=== PATIENT | female | born 1985 | race Caucasian/White ===

== ENCOUNTER 2017-04-09 08:38 | Emergency (ER) | payer BC | END 2017-04-09 08:53 | disposition left against medical advice (07) | LOC: MW.ED 08:38 | DX: Z53.21 Procedure and treatment not carried out due to patient leaving prior to being seen by health care provider (principal) ==

== ENCOUNTER 2017-10-11 16:17 | Inpatient (IN) | payer BC ==
[2017-10-11] MEDS ORDERED: Water For Irrigation,Sterile 1,000 ML Container IRR PRN (16:37)
[2017-10-11] MEDS ORDERED: Nalbuphine 10 MG/ML 10 ML MDV IVPUSH PRN (16:37)
[2017-10-11] MEDS ORDERED: Methylergonovine 0.2 MG/1 ML Amp IM PRN (16:37)
[2017-10-11] MEDS ORDERED: Misoprostol 200 MCG Tab PO PRN (16:37)
[2017-10-11] MEDS ORDERED: Terbutaline 1 MG/ML SDV SUBCUT PRN (16:37)
[2017-10-11] MEDS ORDERED: Tranexamic Acid 1,000 MG in Sodium Chloride 0.9% 100 ML IV PRN (16:37)
[2017-10-11] MEDS ORDERED: Sodium Chloride 0.9% 10 ML Syringe FLUSH PRN (16:37)
[2017-10-11] MEDS ORDERED: Carboprost Tromethamine 250 MCG/1 ML Amp IM PRN (16:37)
[2017-10-11] MEDS ORDERED: Sodium Chloride 0.9% 2.5 ML Syringe FLUSH PRN (16:37)
[2017-10-11] MEDS ORDERED: Lidocaine 1% 50 ML MDV INJECT PRN (16:37)
[2017-10-11] MEDS ORDERED: Oxytocin/0.9 % Sodium Chloride 30 UNIT/500 ML BAG IV SCH ×2 (16:45)
--- NOTE | 2017-10-11 17:11 | PCM.LDHP ---
L&D History of Present Illness - General Date of Service: 10/11/17 Admit Problem/Dx: Patient Status Order with Admit Dx/Problem 10/11/17 16:37 Patient Status [ADT] Routine Admission Diagnosis/Problem Admission Diagnosis/Problem - planned 10/11/17 17:08 32yo EDC 10/16/2017 39 1/7wks O-, RI, GBS neg. IOL term Source of Information: Patient History Limitations: Reports: No Limitations - History of Present Illness Improves with: Reports: None Worsens with: Reports: None Associated Symptoms: Reports: N - Related Data Allergies/Adverse Reactions: Allergies Allergy/AdvReac Type Severity Reaction Status Date / Time amoxicillin [Amoxicillin] Allergy Unknown Difficulty Verified 07/16/16 15:57 Breathing Home Medications: Home Meds Multivitamin [Multivitamins] 1 each PO DAILY 07/16/16 [History] Past Medical History - Past Health History Medical/Surgical History: Denies Medical/Surgical History HEENT History: Reports: None Cardiovascular History: Reports: None Gastrointestinal History: Reports: Other (See Below) Other Gastrointestinal History: heartburn Psychiatric History: Reports: None Endocrine/Metabolic History: Reports: None - Past Surgical History HEENT Surgical History: Reports: None Female Surgical History: Reports: D&C Musculoskeletal Surgical History: Reports: None Social & Family History - Family History Family Medical History: Noncontributory - Caffeine Use Caffeine Use: Reports: Coffee Other Caffeine Use: 1 cup daily H&P Review of Systems - Review of Systems: Review Of Systems: See Below General: Reports: No Symptoms HEENT: Reports: No Symptoms Pulmonary: Reports: No Symptoms Cardiovascular: Reports: No Symptoms Gastrointestinal: Reports: No Symptoms Genitourinary: Reports: No Symptoms Musculoskeletal: Reports: No Symptoms Skin: Reports: No Symptoms Psychiatric: Reports: No Symptoms Neurological: Reports: No Symptoms Hematologic/Lymphatic: Reports: No Symptoms Immunologic: Reports: No Symptoms L&D Exam - Exam Exam: See Below - OB Specific Movement: Active Heart Tones: Present Heart Tones per Min: 125 Heart Rate (FHR) Variability: Moderate (6-25 bmp) Presentation: Vertex - Cain Score Cain Score Cervix Position: Midposition Cain Score Consistency: Soft Cain Score Effacement: 51-70% Cain Score Dilation: 1-2 cm Cain Score Infant's Station: -2 Cain Score Total: 7 - Exam General: Alert, Oriented HEENT: Hearing Intact Lungs: Clear to Auscultation, Normal Respiratory Effort Cardiovascular: Regular Rate, Regular Rhythm, Normal S1, Normal S2 GI/Abdominal Exam: Normal Bowel Sounds, Soft, Non-Tender Rectal Exam: Deferred Genitourinary: Normal external exam, Normal bimanual exam, Cervical dilitation Back Exam: Normal Inspection, Full Range of Motion Extremities: Normal Inspection, Normal Range of Motion, Non-Tender, No Pedal Edema, Normal Capillary Refill Skin: Warm, Dry, Intact Neurological: Cranial Nerves Intact, Reflexes Equal Bilateral, Normal Speech, Normal Tone Psychiatric: Alert, Normal Affect, Normal Mood - Problem List (1) Supervision of normal IUP (intrauterine ) in multigravida SNOMED Code(s): 852269607, [id number], [id number] ICD Code: Z34.80 - ENCOUNTER FOR SUPRVSN OF NORMAL , UNSP TRIMESTER Status: Acute Priority: High Current Visit: Yes Qualifiers: Trimester: third trimester Qualified Code(s): Z34.83 - Encounter for supervision of other normal , third trimester Problem List Initiated/Reviewed/Updated: Yes Orders Last 24hrs: Active Orders 24 hr Category Date Time Status Patient Status [ADT] Routine ADT 10/11/17 16:37 Active Bedrest Bathroom Privileges [RC] ASDIRECTED Care 10/11/17 16:37 Active Communication Order [RC] ASDIRECTED Care 10/11/17 16:37 Active Communication Order [RC] ASDIRECTED Care 10/11/17 16:37 Active Communication Order [RC] ASDIRECTED Care 10/11/17 16:37 Active Heart Tones [RC] CONTINUOUS Care 10/11/17 16:37 Active Non Stress Test [RC] PER UNIT ROUTINE Care 10/11/17 16:37 Active May Shower [RC] ASDIRECTED Care 10/11/17 16:37 Active Notify Provider [RC] PRN Care 10/11/17 16:37 Active Notify Provider [RC] PRN Care 10/11/17 16:37 Active Notify Provider [RC] PRN Care 10/11/17 16:37 Active Notify Provider [RC] STAT Care 10/11/17 16:37 Active Oxygen Therapy [RC] ASDIRECTED Care 10/11/17 16:37 Active Up ad Chloé [RC] ASDIRECTED Care 10/11/17 16:37 Active Vaginal Exam [RC] PRN Care 10/11/17 16:37 Active Vaginal Exam [RC] PRN Care 10/11/17 16:37 Active Vital Signs [RC] PER UNIT ROUTINE Care 10/11/17 16:37 Active Vital Signs [RC] PER UNIT ROUTINE Care 10/11/17 16:37 Active CBC W/O DIFF,HEMOGRAM [HEME] Routine Lab 10/11/17 16:37 Ordered TYPE AND SCREEN [BBK] Routine Lab 10/11/17 16:37 Ordered Carboprost Tromethamine [Hemabate DS] Med 10/11/17 16:37 Active 250 mcg IM ASDIRECTED PRN Lactated Ringers [Ringers, Lactated] 1,000 ml Med 10/11/17 16:45 Active IV ASDIRECTED Lidocaine 1% [Xylocaine 1%] Med 10/11/17 16:37 Active 50 ml INJECT .ONCE PRN Methylergonovine [Methergine] Med 10/11/17 16:37 Active 0.2 mg IM ASDIRECTED PRN Misoprostol [Cytotec] Med 10/11/17 16:37 Active 200 mcg PO .ONCE PRN Nalbuphine [Nubain] Med 10/11/17 16:37 Active 10 mg IVPUSH Q1H PRN Oxytocin/0.9 % Sodium Chloride [Oxytocin 30 Unit/500 ML Med 10/11/17 16:45 Active -NS] 30 unit in 500 ml IV TITRATE Oxytocin/0.9 % Sodium Chloride [Oxytocin 30 Unit/500 ML Med 10/11/17 16:45 Active -NS] 30 unit in 500 ml IV TITRATE Sodium Chloride 0.9% [Saline Flush] Med 10/11/17 16:37 Active 10 ml FLUSH ASDIRECTED PRN Sodium Chloride 0.9% [Saline Flush] Med 10/11/17 16:37 Active 2.5 ml FLUSH ASDIRECTED PRN Terbutaline [Brethine] Med 10/11/17 16:37 Active 0.25 mg SUBCUT ASDIRECTED PRN Tranexamic Acid [Cyklokapron] 1,000 mg Med 10/11/17 16:37 Active Sodium Chloride 0.9% [Normal Saline] 100 ml IV ONETIME Water For Irrigation,Sterile [Sterile Water for Med 10/11/17 16:37 Active Irrigation] 1,000 ml IRR ASDIRECTED PRN Scalp Electrode [WOMSER] Per Unit Routine Oth 10/11/17 16:37 Ordered Medication Administration Instruction [OM.PC] Q3H Oth 10/11/17 16:45 Ordered Peripheral IV Insertion Adult [OM.PC] Routine Oth 10/11/17 16:37 Ordered Resuscitation Status Routine Resus Stat 10/11/17 16:37 Ordered Medication Orders Carboprost Tromethamine (Hemabate Ds) 250 mcg IM ASDIRECTED PRN PRN Reason: Post Hemorrhage Lactated Ringer's (Ringers, Lactated) 1,000 mls @ 150 mls/hr IV ASDIRECTED CARLO Oxytocin/Sodium Chloride (Oxytocin 30 Unit/500 Ml-Ns) 30 unit in 500 mls @ 250 mls/hr IV TITRATE CARLO Oxytocin/Sodium Chloride (Oxytocin 30 Unit/500 Ml-Ns) 30 unit in 500 mls @ 2 mls/hr IV TITRATE CARLO; Protocol Tranexamic Acid 1,000 mg/ (Sodium Chloride) 110 mls @ 660 mls/hr IV ONETIME PRN PRN Reason: Bleeding Lidocaine HCl (Xylocaine 1%) 50 ml INJECT .ONCE PRN PRN Reason: Laceration repair Methylergonovine Maleate (Methergine) 0.2 mg IM ASDIRECTED PRN PRN Reason: Post Hemorrhage Misoprostol (Cytotec) 200 mcg PO .ONCE PRN PRN Reason: Post Hemorrhage Nalbuphine HCl (Nubain) 10 mg IVPUSH Q1H PRN PRN Reason: Pain (severe 7-10) Sodium Chloride (Saline Flush) 10 ml FLUSH ASDIRECTED PRN PRN Reason: Keep Vein Open Sodium Chloride (Saline Flush) 2.5 ml FLUSH ASDIRECTED PRN PRN Reason: Keep Vein Open Sterile Water (Sterile Water For Irrigation) 1,000 ml IRR ASDIRECTED PRN PRN Reason: delivery Terbutaline Sulfate (Brethine) 0.25 mg SUBCUT ASDIRECTED PRN PRN Reason: Tacysystole Assessment/Plan Comment:: IOL A: 32yo EDC 10/16/2017 39 1/7wks O-, RI, GBS neg. IOL term P: Admit, AROM for IOL. GBS neg, Anticipate . Dr Hdez updated.
[2017-10-11] MEDS: Lactated Ringers 1,000 ML IV SCH ×3 (22:15→23:43)
[2017-10-11] MEDS ORDERED: fentaNYL 100 MCG/2 ML SDV ONE (22:44)
[2017-10-11] MEDS ORDERED: Phenylephrine 1% 10 MG/ML SDV ONE (23:13)
[2017-10-11] MEDS ORDERED: ePHEDrine 50 MG/ML SDV ONE (23:13)
--- NOTE | 2017-10-12 00:04 | PCM.PREANE ---
Preanesthetic Assessment - Anesthesia/Transfusion/Family Hx Anesthesia History: Prior Anesthesia Without Reaction Family History of Anesthesia Reaction: No Transfusion History: No Prior Transfusion(s) - Review of Systems General: No Symptoms Pulmonary: No Symptoms Cardiovascular: No Symptoms Gastrointestinal: No Symptoms Neurological: No Symptoms Other: Reports: None (Denies any personal or family hx of bleeding or clotting problems) - Physical Assessment Height: 16.15 m Weight: 91.994 kg ASA Class: 2 Mental Status: Alert & Oriented x3 Airway Class: Mallampati = 2 Dentition: Reports: Normal Dentition ROM/Head Extension: Full - Lab Values: Laboratory Last Values WBC 10.83 K/uL (4.0-11.0) 10/11/17 16:55 RBC 4.07 M/uL (4.30-5.90) L 10/11/17 16:55 Hgb 12.5 g/dL (12.0-16.0) 10/11/17 16:55 Hct 35.5 % (36.0-46.0) L 10/11/17 16:55 MCV 87.2 fL (80.0-98.0) 10/11/17 16:55 MCH 30.7 pg (27.0-32.0) 10/11/17 16:55 MCHC 35.2 g/dL (31.0-37.0) 10/11/17 16:55 RDW Std Deviation 43.0 fl (28.0-62.0) 10/11/17 16:55 RDW Coeff of Tommy 14 % (11.0-15.0) 10/11/17 16:55 Plt Count 224 K/uL (150-400) 10/11/17 16:55 MPV 9.70 fL (7.40-12.00) 10/11/17 16:55 Nucleated RBC % 0.0 /100WBC 10/11/17 16:55 Nucleated RBCs # 0 K/uL 10/11/17 16:55 Blood Type O NEGATIVE 10/11/17 16:55 Antibody Screen NEGATIVE 10/11/17 16:55 - Allergies Allergies/Adverse Reactions: Allergies Allergy/AdvReac Type Severity Reaction Status Date / Time amoxicillin [Amoxicillin] Allergy Unknown Difficulty Verified 10/11/17 20:32 Breathing - Acknowledgements Anesthesia Type Planned: Epidural Pt an Appropriate Candidate for the Planned Anesthesia: Yes Alternatives and Risks of Anesthesia Discussed w Pt/Guardian: Yes Pt/Guardian Understands and Agrees with Anesthesia Plan: Yes PreAnesthesia Questionnaire - Past Health History Medical/Surgical History: Denies Medical/Surgical History HEENT History: Reports: None Cardiovascular History: Reports: None Respiratory History: Reports: None Gastrointestinal History: Reports: Other (See Below) Other Gastrointestinal History: heartburn Genitourinary History: Reports: None SPECIALTY MOLDER History: Reports: Musculoskeletal History: Reports: None Neurological History: Reports: None Psychiatric History: Reports: None Endocrine/Metabolic History: Reports: None Hematologic History: Reports: None Immunologic History: Reports: None Oncologic (Cancer) History: Reports: None Dermatologic History: Reports: None - Infectious Disease History Infectious Disease History: Reports: None - Past Surgical History Head Surgeries/Procedures: Reports: None HEENT Surgical History: Reports: None Cardiovascular Surgical History: Reports: None Respiratory Surgical History: Reports: None GI Surgical History: Reports: None Female Surgical History: Reports: D&C Endocrine Surgical History: Reports: None Neurological Surgical History: Reports: None Musculoskeletal Surgical History: Reports: None Oncologic Surgical History: Reports: None Dermatological Surgical History: Reports: None - SUBSTANCE USE Smoking Status *Q: Never Smoker Second Hand Smoke Exposure: No Recreational Drug Use History: No - HOME MEDS Home Medications: Home Meds Multivitamin [Multivitamins] 1 each PO DAILY 07/16/16 [History] Ranitidine [Zantac] 75 mg PO DAILY 10/11/17 [History] Sertraline [Zoloft] 50 mg PO BEDTIME 10/11/17 [History] - CURRENT (IN HOUSE) MEDS Current Meds: Current Medications Carboprost Tromethamine (Hemabate Ds) 250 mcg IM ASDIRECTED PRN PRN Reason: Post Hemorrhage Lactated Ringer's (Ringers, Lactated) 1,000 mls @ 150 mls/hr IV ASDIRECTED CARLO Last Admin: 10/11/17 23:43 Dose: 150 mls/hr Oxytocin/Sodium Chloride (Oxytocin 30 Unit/500 Ml-Ns) 30 unit in 500 mls @ 250 mls/hr IV TITRATE CARLO Oxytocin/Sodium Chloride (Oxytocin 30 Unit/500 Ml-Ns) 30 unit in 500 mls @ 2 mls/hr IV TITRATE CARLO; Protocol Last Admin: 10/11/17 23:27 Dose: 2 munits/min, 2 mls/hr Tranexamic Acid 1,000 mg/ (Sodium Chloride) 110 mls @ 660 mls/hr IV ONETIME PRN PRN Reason: Bleeding Lidocaine HCl (Xylocaine 1%) 50 ml INJECT .ONCE PRN PRN Reason: Laceration repair Methylergonovine Maleate (Methergine) 0.2 mg IM ASDIRECTED PRN PRN Reason: Post Hemorrhage Misoprostol (Cytotec) 200 mcg PO .ONCE PRN PRN Reason: Post Hemorrhage Nalbuphine HCl (Nubain) 10 mg IVPUSH Q1H PRN PRN Reason: Pain (severe 7-10) Sodium Chloride (Saline Flush) 10 ml FLUSH ASDIRECTED PRN PRN Reason: Keep Vein Open Sodium Chloride (Saline Flush) 2.5 ml FLUSH ASDIRECTED PRN PRN Reason: Keep Vein Open Sterile Water (Sterile Water For Irrigation) 1,000 ml IRR ASDIRECTED PRN PRN Reason: delivery Terbutaline Sulfate (Brethine) 0.25 mg SUBCUT ASDIRECTED PRN PRN Reason: Tacysystole Discontinued Medications Ephedrine Sulfate (Ephedrine Sulfate) Confirm Administered Dose 50 mg .ROUTE .STK-MED ONE Stop: 10/11/17 23:14 Fentanyl (Sublimaze) Confirm Administered Dose 100 mcg .ROUTE .STK-MED ONE Stop: 10/11/17 22:45 Fentanyl/Bupivacaine HCl (Jkrvroxd-Vqzjh-Fa 2 Mcg/Ml-0.125%) Confirm Administered Dose 100 mls @ as directed EP .STK-MED ONE Stop: 10/11/17 22:44 Phenylephrine HCl (Henrique-Synephrine) Confirm Administered Dose 10 mg .ROUTE .STK- MED ONE Stop: 10/11/17 23:14
[2017-10-12] MEDS: Lactated Ringers 1,000 ML IV SCH (11:30)
[2017-10-12] MEDS ORDERED: oxyCODONE 5 MG Tab PO PRN (15:22)
[2017-10-12] MEDS ORDERED: Benzocaine/Menthol 20%-0.5% Spray 78 GM Cannister TOP PRN (15:22)
[2017-10-12] MEDS ORDERED: Lanolin 100% Cream 7 GM Tube TOP PRN (15:22)
[2017-10-12] MEDS ORDERED: Bisacodyl 10 MG Supp RECTAL PRN (15:22)
[2017-10-12] MEDS ORDERED: Docusate Sodium 100 MG Cap PO PRN (15:22)
[2017-10-12] MEDS ORDERED: Acetaminophen 500 MG Tab PO PRN ×2 (15:22)
[2017-10-12] MEDS ORDERED: Ibuprofen 400 MG Tab PO PRN (15:22)
[2017-10-12] MEDS ORDERED: Witch Hazel Medicated Pads 40/Jar TOP PRN (15:22)
[2017-10-12] MEDS: Ibuprofen 800 MG Tab PO PRN (19:41)
--- NOTE | 2017-10-12 21:29 | OR ---
SURGEON: Nando Hdez MD DATE OF PROCEDURE: 10/12/2017 Ms. Galvan is multigravida, she is 32, she is followed in our clinic primarily by our nurse sales audit clerk. She is induced electively. She responded to Cytotec and Pitocin. The patient progressed without any problem. She became complete zero station and she commenced pushing without any further descending or rotating. The patient was in occiput posterior presentation. I was consulted, evaluated, and confirmed the presentation and position of the fetus. The patient counseled and to have a vacuum extraction. I explained to her in detail of the vacuum extraction and after obtaining consent, kiwi vacuum extraction was used and with one pull, I was able to bring the baby head down and rotated to occipitoanterior and accomplished normal spontaneous vaginal delivery without any problem. Fetus cried immediately. scores reported to be 8 and 9, and the weight is not available at this time. The placenta delivered spontaneous, complete, and intact. Estimated blood loss was 250 to 300 mL. There was no complication. heart rate was category 1 through the entire process of labor. ABDI / ZAIN /[id number]
[2017-10-13] MEDS: Ibuprofen 800 MG Tab PO PRN ×2 (05:46→17:41)
--- NOTE | 2017-10-13 10:07 | PCM.DCSUM1 ---
Discharge Summary - Discharge Data Discharge Date: 10/13/17 Discharge Disposition: Home, Self-Care 01 Condition: Good - Patient Instructions Diet: Usual Diet as Tolerated Activity: As Tolerated Driving: Do Not Drive Showering/Bathing: September Shower Notify Provider of: Fever, Increased Pain, Nausea and/or Vomiting - Discharge Plan Home Medications: Home Meds Multivitamin [Multivitamins] 1 each PO DAILY 07/16/16 [History] Ranitidine [Zantac] 75 mg PO DAILY 10/11/17 [History] Sertraline [Zoloft] 50 mg PO BEDTIME 10/11/17 [History] Referrals: [facility] [Outside] Santa Campbell CNM [Primary Care Provider] - 11/26/17 10:45 am - General Info Date of Service: 10/13/17 Functional Status: Reports: Pain Controlled - Review of Systems General: Reports: No Symptoms HEENT: Reports: No Symptoms Pulmonary: Reports: No Symptoms Cardiovascular: Reports: No Symptoms Gastrointestinal: Reports: No Symptoms Genitourinary: Reports: No Symptoms Musculoskeletal: Reports: No Symptoms Skin: Reports: No Symptoms Neurological: Reports: No Symptoms Psychiatric: Reports: No Symptoms - Patient Data Vitals - Most Recent: Last Vital Signs Temp 36.3 C 10/13/17 04:00 Pulse 82 10/13/17 04:00 Resp 14 10/13/17 04:00 BP 120/64 10/13/17 04:00 Pulse Ox 96 10/13/17 04:00 Weight - Most Recent: 91.994 kg I&O - Last 24 hours: Intake & Output 10/12/17 10/13/17 10/13/17 22:59 06:59 14:59 Intake Total 2 Balance 2 Lab Results - Last 24 hrs: Laboratory Results - last 24 hr 10/12/17 Range/Units 17:03 Screen NEGATIVE (NEGATIVE) RhIG Candidate? YES Rhogam Indicated YES, BABY RH POS H Med Orders - Current: Current Medications Acetaminophen (Tylenol Extra Strength) 500 mg PO Q4H PRN PRN Reason: Pain Acetaminophen (Tylenol Extra Strength) 1,000 mg PO Q4H PRN PRN Reason: Pain Last Admin: 10/12/17 23:41 Dose: 1,000 mg Benzocaine/Menthol (Dermoplast Pain Relief 20%-0.5% [place]) 78 gm TOP ASDIRECTED PRN PRN Reason: Perineal Comfort Measure Bisacodyl (Dulcolax) 10 mg RECTAL .ONCE PRN PRN Reason: Constipation Docusate Sodium (Colace) 100 mg PO BID PRN PRN Reason: Constipation Emollient Ointment (Lansinoh Hpa) 0 gm TOP ASDIRECTED PRN PRN Reason: Sore Nipples Ibuprofen (Motrin) 400 mg PO Q4H PRN PRN Reason: Pain Ibuprofen (Motrin) 800 mg PO Q6H PRN PRN Reason: Pain Last Admin: 10/13/17 05:46 Dose: 800 mg Oxycodone HCl (Oxycodone) 5 mg PO Q2H PRN PRN Reason: Pain Witch Kerline (Tucks) 1 pad TOP ASDIRECTED PRN PRN Reason: comfort care Discontinued Medications Carboprost Tromethamine (Hemabate Ds) 250 mcg IM ASDIRECTED PRN PRN Reason: Post Hemorrhage Ephedrine Sulfate (Ephedrine Sulfate) Confirm Administered Dose 50 mg .ROUTE .STK-MED ONE Stop: 10/11/17 23:14 Fentanyl (Sublimaze) Confirm Administered Dose 100 mcg .ROUTE .STK-MED ONE Stop: 10/11/17 22:45 Lactated Ringer's (Ringers, Lactated) 1,000 mls @ 150 mls/hr IV ASDIRECTED CARLO Last Admin: 10/12/17 11:30 Dose: 150 mls/hr Oxytocin/Sodium Chloride (Oxytocin 30 Unit/500 Ml-Ns) 30 unit in 500 mls @ 250 mls/hr IV TITRATE CARLO Oxytocin/Sodium Chloride (Oxytocin 30 Unit/500 Ml-Ns) 30 unit in 500 mls @ 2 mls/hr IV TITRATE CARLO; Protocol Last Titration: 10/12/17 12:29 Dose: 4 munits/min, 4 mls/hr Tranexamic Acid 1,000 mg/ (Sodium Chloride) 110 mls @ 660 mls/hr IV ONETIME PRN PRN Reason: Bleeding Fentanyl/Bupivacaine HCl (Btbwbinv-Vqoil-Cn 2 Mcg/Ml-0.125%) Confirm Administered Dose 100 mls @ as directed EP .STK-MED ONE Stop: 10/11/17 22:44 Fentanyl/Bupivacaine HCl (Zlnkjpwx-Sbsvw-Ov 2 Mcg/Ml-0.125%) Confirm Administered Dose 100 mls @ as directed EP .STK-MED ONE Stop: 10/12/17 08:25 Lidocaine HCl (Xylocaine 1%) 50 ml INJECT .ONCE PRN PRN Reason: Laceration repair Methylergonovine Maleate (Methergine) 0.2 mg IM ASDIRECTED PRN PRN Reason: Post Hemorrhage Misoprostol (Cytotec) 200 mcg PO .ONCE PRN PRN Reason: Post Hemorrhage Nalbuphine HCl (Nubain) 10 mg IVPUSH Q1H PRN PRN Reason: Pain (severe 7-10) Phenylephrine HCl (Henrique-Synephrine) Confirm Administered Dose 10 mg .ROUTE .STK- MED ONE Stop: 10/11/17 23:14 Sodium Chloride (Saline Flush) 10 ml FLUSH ASDIRECTED PRN PRN Reason: Keep Vein Open Sodium Chloride (Saline Flush) 2.5 ml FLUSH ASDIRECTED PRN PRN Reason: Keep Vein Open Sterile Water (Sterile Water For Irrigation) 1,000 ml IRR ASDIRECTED PRN PRN Reason: delivery Terbutaline Sulfate (Brethine) 0.25 mg SUBCUT ASDIRECTED PRN PRN Reason: Tacysystole - Exam General: Reports: Alert, Oriented HEENT: Reports: Pupils Equal, Pupils Reactive, EOMI, Mucous Membr. Moist/[place] Neck: Reports: Supple Lungs: Reports: Clear to Auscultation, Normal Respiratory Effort Cardiovascular: Reports: Regular Rate, Regular Rhythm GI/Abdominal Exam: Normal Bowel Sounds, Soft, Non-Tender, No Organomegaly, No Distention, No Abnormal Bruit, No Mass, Pelvis Stable (Female) Exam: Normal External Exam, Normal Speculum Exam, Normal Bimanual Exam Rectal (Female) Exam: Normal Exam, Normal Rectal Tone Back Exam: Reports: Normal Inspection, Full Range of Motion Extremities: Normal Inspection, Normal Range of Motion, Non-Tender, No Pedal Edema, Normal Capillary Refill Skin: Reports: Warm, Dry, Intact Wound/Incisions: Reports: Healing Well Neurological: Reports: No New Focal Deficit Psy/Mental Status: Reports: Alert, Normal Affect, Normal Mood
[2017-10-13 12:13] VITALS: BP 113/59
== END 2017-10-13 19:15 | disposition home or self-care (01) | DRG 560 ==
LOC: MW.OBCHECK 16:17 → MW.OB 16:18 → MW.OBCHECK 16:37 → MW.OB 16:37 → OBSVTOIN 10-12 15:11 → MW.OB 10-12 18:05
PROVIDERS: ADMIT Obstetrics & Gynecology; ATTEND Obstetrics & Gynecology
PROC: 10D07Z6 Extraction of Products of Conception, Vacuum, Via Natural or Artificial Opening (ICD-10-PCS; principal; 2017-10-12)
PROC: 3E0P7VZ Introduction of Hormone into Female Reproductive, Via Natural or Artificial Opening (ICD-10-PCS; 2017-10-12)
PROC: 3E033VJ Introduction of Other Hormone into Peripheral Vein, Percutaneous Approach (ICD-10-PCS; 2017-10-12)
PROC: 10907ZC Drainage of Amniotic Fluid, Therapeutic from Products of Conception, Via Natural or Artificial Opening (ICD-10-PCS; 2017-10-12)
DX: O80 Encounter for full-term uncomplicated delivery (principal); Z3A.39 39 weeks gestation of pregnancy; Z37.0 Single live birth; Z88.0 Allergy status to penicillin
CPT/HCPCS: 36415; 51701; 51702; 59025; 59409; 80305; 85027; 85460; 86850; 86900; 86901; A9270-GY; J2370; J2590; J2790; J3010; J7120

== ENCOUNTER 2024-10-29 22:15 | Emergency (ER) | payer SELFPAY ==
[2024-10-29 22:36] VITALS: BP 130/101; PULSE 115
== END 2024-10-29 22:43 ==
LOC: MW.ED 22:15
DX: Z02.89 Encounter for other administrative examinations (principal); Z88.8 Allergy status to other drugs, medicaments and biological substances
CPT/HCPCS: 99282; 99283